=== PATIENT | female | born 1980 | race Caucasian/White ===

== ENCOUNTER 2021-01-31 09:14 | Emergency (ER) | payer OTHER ==
[~2021-01-31] VITALS: Ht 165.1 cm; Wt 124.7 kg
[2021-01-31] MEDS ORDERED: CARVEDILOL12.5 MG (09:24)
[2021-01-31] MEDS ORDERED: HYDROCHLOROTH12.5 M1 (09:24)
[2021-01-31] MEDS ORDERED: MOBIC7.5 MG PO (09:34)
[2021-01-31] MEDS ORDERED: NORCO5 PO (09:34)
[2021-01-31] MEDS ORDERED: MEDROLDOSEPACK PO (09:34)
[2021-01-31 09:39] VITALS: BP 112/59
== END 2021-01-31 09:39 | disposition home or self-care (01) ==
LOC: M.ERS 09:14
DX: M54.42 Lumbago with sciatica, left side (principal); I10 Essential (primary) hypertension; Z90.89 Acquired absence of other organs; Z79.899 Other long term (current) drug therapy